=== PATIENT | male | born 1985 | race African-American/Black ===

== ENCOUNTER 2020-03-09 16:31 | Emergency (ER) | payer MEDICAID ==
[~2020-03-09] VITALS: Ht 188 cm; Wt 82.0 kg
[2020-03-09 17:07] VITALS: BP 126/86
[2020-03-09] MEDS ORDERED: AZITHROMYCIN 500 MG TABLET PO ONE (17:45)
[2020-03-09] MEDS ORDERED: LIDOCAINE HCL 1% 20ML VIAL (Pyxis) INJ INFIL ONE (17:45)
[2020-03-09] MEDS ORDERED: CEFTRIAXONE SODIUM 250 MG/VIAL IM ONE (17:45)
[2020-03-14 04:16] LABS: NEISSERIA GONORRHOEAE NAA Positive (Negative)
== END 2020-03-09 18:15 | disposition home or self-care (01) ==
LOC: ER 16:31
DX: Z20.2 Contact with and (suspected) exposure to infections with a predominantly sexual mode of transmission (principal); F12.10 Cannabis abuse, uncomplicated; F17.200 Nicotine dependence, unspecified, uncomplicated
CPT/HCPCS: 87491; 87591; 96372; 99283; J0696; J3490